=== PATIENT | male | born 1990 | race Caucasian/White ===

== ENCOUNTER 2022-12-11 22:22 | Emergency (ER) | payer SELFPAY ==
[2022-12-11 22:35] VITALS: BP 145/95; PULSE 84; RESP 18; TEMP 36.9; O2SAT 99; BMI 25.0
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
[2022-12-11] MEDS: cephALEXin 250 MG CAPSULE 500 MG PO (22:57)
== END 2022-12-11 23:05 | disposition home or self-care (01) ==
PROVIDERS: Emergency Provider Emergency Medicine
DX: T81.49XA Infection following a procedure, other surgical site, initial encounter (principal)
CPT/HCPCS: 99283

== ENCOUNTER 2023-10-11 12:14 | Emergency (ER) | payer SELFPAY ==
[2023-10-11] VITALS (11 sets, daily range): BP systolic 121–140; BP diastolic 76–86; PULSE 59–75; RESP 18–23; TEMP 36.3–36.6; O2SAT 98–100; BMI 25.2
--- NOTE | 2023-10-11 12:24 | DI.RAD.S_ITS ---
PROCEDURE: XR CHEST 1V INDICATIONS: chest pain TECHNIQUE: One view of the chest was acquired. COMPARISON: None. FINDINGS: Surgical changes and devices: None. Lungs and pleura: Lungs are clear. No pleural effusions or pneumothorax. Mediastinum: Mediastinal contours appear normal. Heart size is normal. Bones and chest wall: No suspicious bony lesions. Overlying soft tissues appear unremarkable. IMPRESSION: No acute cardiopulmonary abnormalities or focal airspace disease. Dictated by: Corey Tilley M.D. on 10/11/2023 at 13:32 Approved by: Corey Tilley M.D. on 10/11/2023 at 13:32
[2023-10-11 13:00] LABS: Add Manual Diff / Slide Review NO; Basophils Absolute Auto 100 /uL (0-100); Basophils Percent Auto 1.2 % (0-2); Eosinophils Absolute Auto 100 /uL (0-450); Eosinophils Percent Auto 0.7 % (2-4); Hematocrit 44.9 % (41-53); Hemoglobin 15.5 g/dL (13.5-17.5); Lymphocytes Absolute Auto 1700 /uL (1100-4500); Lymphocytes Percent Auto 20.9 % (25-40); Mean Corpuscular HGB Conc 34.4 % (30-36); Mean Corpuscular Hemoglobin 34.1 PG (26-34); Monocytes Absolute Auto 900 /uL (0-900); Monocytes Percent Auto 10.6 % (3-14); Neutrophils Absolute Auto 5400 /uL (1500-7000); Neutrophils Percent Auto 66.6 % (50-75); Platelet Count 295 X10^3/uL (150-400); Red Blood Cell Count 4.54 X10^6/uL (4.5-5.9); Red Cell Distribution Width 12.8 % (11.6-14.8); White Blood Cell Count 8.1 X10^3/uL (4.5-11.0)
[2023-10-11 13:05] LABS: Prothrombin Time 11.4 SECONDS (9.4-12.5)
[2023-10-11 13:08] LABS: PTT Partial Thromboplastin Tim 36 SECONDS (25.1-36.5)
[2023-10-11 13:10] LABS: Alanine Aminotransferase 96 IU/L (<50); Albumin Globulin Ratio 1.4 (1.0-2.8); Alkaline Phosphatase 79 U/L (38-126); Aspartate Aminotransferase 85 IU/L (17-59); BUN Creatinine Ratio 12.5 (6-22); Bilirubin Total 1.6 mg/dL (0.2-1.3); Blood Urea Nitrogen 10 mg/dL (9-20); Calcium 9.1 mg/dL (8.4-10.2); Carbon Dioxide 24 mmol/L (22-32); Chloride 100 mmol/L (98-107); Creatine Kinase 162 U/L (55-170); Estimated Glomerular Filt Rate > 60 mL/min (>60); Globulin 3.5 g/dL (1.7-4.1); Glucose 80 mg/dL (70-100); HEMOLYSIS < 15 (0-50); Lipase 78 U/L (23-300); Magnesium 2.2 mg/dL (1.6-2.3); Potassium 3.9 mmol/L (3.4-5.1); Sodium 135 mmol/L (137-145); Total Protein 8.5 g/dL (6.3-8.2)
[2023-10-11 13:20] LABS: Troponin I < 0.012 ng/mL (0.01-0.034)
--- NOTE | 2023-10-11 13:28 | ED_ITS ---
HPI - Chest Pain General Chief Complaint: Chest Pain Stated Complaint: no circulation to extremities/heart palpitations Time Seen by Provider: 10/11/23 13:12 Source: patient Mode of arrival: Ambulatory History of Present Illness HPI narrative: Patient here with . Complains of off and on numbness tingling to the hands and feet. Has had palpitations with nausea and vomiting. Today had left-sided chest pain radiating to the left arm. Patient does smoke. Father side has history of coronary disease. Patient has never had a stress test before. Patient does not have primary care. 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 Very active. However played 2 games Tuesday night without difficulty. The following day he played 8 games without difficulty. However Tuesday night he felt palpitations. He awoke Tuesday morning with nausea and vomiting and tingling to the feet and hands. [place] very tired. Today he awoke feeling the same way however he works as a construction engineering manager. He had left-sided chest discomfort that resolved. It radiated to his left arm. Currently no complaints. Related Data Allergies Allergy/AdvReac Type Severity Reaction Status Date / Time No Known Drug Allergies Allergy Verified 10/11/23 12:19 Review of Systems Review of Systems Narrative: GENERAL: negative chills, fatigue, malaise, fever, positive sweats. HEENT: negative sinus pain, ear pain, sore throat RESPIRATORY: negative dyspnea, cough CARDIOVASCULAR: Positive chest pain, palpitations GASTROINTESTINAL: Positive nausea, vomiting, negative abdominal pain : negative dysuria, frequency, hematuria MUSCULOSKELETAL: negative muscle or bony pain SKIN: negative rash, skin lesions NEUROLOGIC: negative weakness, numbness ROS Unobtainable: All systems reviewed & are unremarkable except as noted in HPI and below Patient History Social History Smoking Status: Current every day smoker Smoking Status: Current every day smoker alcohol intake frequency: a few times a week Substance Use Type: marijuana Exam Narrative Exam Narrative: GENERAL: in no distress, not toxic not dyspneic HEAD: Normocephalic. EYES: Pupils equal round ENT: Mucous membranes moist. NECK: Trachea midline. CARDIOVASCULAR: Regular rate and rhythm RESPIRATORY: Clear to auscultation. Breath sounds equal bilaterally. No wheezes, rales, or rhonchi. GASTROINTESTINAL: Abdomen soft, non-tender EXTREMITIES: No gross deformities. Bilateral hands and feet are warm soft and pink with strong radial pulses and pedal pulses with brisk cap refills. BACK: No flank tenderness. NEURO: AOx4. Clear speech SKIN: Warm and dry PSYCH: Not anxious, is cooperative Initial Vital Signs Initial Vital Signs: Vital Signs Temperature 97.4 F L 10/11/23 12:19 Pulse Rate 75 10/11/23 12:19 Respiratory Rate 18 10/11/23 12:19 Blood Pressure 140/86 10/11/23 12:19 Pulse Oximetry 100 10/11/23 12:19 Oxygen Delivery Method Room Air 10/11/23 12:19 Scores HEART Score Heart Score history: Slightly Suspicious Heart Score EKG: Non-Specific repolarization disturbance Heart Score Age: < 45 years old Heart Score risk factors: 1-2 risk factors Heart Score troponin: < or = to normal limit Heart Score Total: 2 Course Orders Ordered: Discontinued Medications Aspirin (Aspirin 81 Mg Chew Tab) 324 mg PO NOW ONE Stop: 10/11/23 12:25 Last Admin: 10/11/23 15:23 Dose: Not Given Documented By: WALESKA Sodium Chloride (Normal Saline 0.9%) 500 mls @ 1,000 mls/hr IV BOLUS ONE Stop: 10/11/23 14:01 Last Infusion: 10/11/23 14:31 Dose: Infused Documented By: JUAN JOSE Admin: 10/11/23 13:57 Dose: 1,000 mls/hr Documented By: JUAN JOSE Vital Signs Vital signs: Vital Signs - 8 hr 10/11/23 12:19 Temperature 97.4 F L Pulse Rate 75 Respiratory Rate 18 Blood Pressure 140/86 Pulse Oximetry 100 Oxygen Delivery Method Room Air MDM - Chest Pain Lab Data 10/11/23 12:44 10/11/23 12:44 Labs: Lab Results 10/11/23 10/11/23 10/11/23 Range/Units 12:44 14:00 14:59 WBC 8.1 (4.5-11.0) X10^3/uL RBC 4.54 (4.5-5.9) X10^6/uL Hgb 15.5 (13.5-17.5) g/dL Hct 44.9 (41-53) % MCV 99.0 (80-100) fL MCH 34.1 H (26-34) PG MCHC 34.4 (30-36) % RDW 12.8 (11.6-14.8) % Plt Count 295 (150-400) X10^3/uL Neut % (Auto) 66.6 (50-75) % Lymph % (Auto) 20.9 L (25-40) % [place] % (Auto) 10.6 (3-14) % Eos % (Auto) 0.7 L (2-4) % Baso % (Auto) 1.2 (0-2) % Neut # (Auto) 5400 (7020-8628) /uL Lymph # (Auto) 1700 (2344-0541) /uL [place] # (Auto) 900 (0-900) /uL Eos # (Auto) 100 (0-450) /uL Baso # (Auto) 100 (0-100) /uL PT 11.4 (9.4-12.5) SECONDS INR 1.0 (0.9-1.3) APTT 36 (25.1-36.5) SECONDS Sodium 135 L (137-145) mmol/L Potassium 3.9 (3.4-5.1) mmol/L Chloride 100 (98-107) mmol/L Carbon Dioxide 24 (22-32) mmol/L BUN 10 (9-20) mg/dL Creatinine 0.80 (0.66-1.25) mg/dL Estimated GFR > 60 (>60) mL/min BUN/Creatinine Ratio 12.5 (6-22) Glucose 80 (70-100) mg/dL Calcium 9.1 (8.4-10.2) mg/dL Magnesium 2.2 (1.6-2.3) mg/dL Total Bilirubin 1.6 H (0.2-1.3) mg/dL AST 85 H (17-59) IU/L ALT 96 H (<50) IU/L Alkaline Phosphatase 79 (38-126) U/L Total Creatine Kinase 162 (55-170) U/L Troponin I < 0.012 < 0.012 (0.01-0.034) ng/mL Total Protein 8.5 H (6.3-8.2) g/dL Albumin 5.0 (3.5-5.0) g/dL Globulin 3.5 (1.7-4.1) g/dL Albumin/Globulin Ratio 1.4 (1.0-2.8) Lipase 78 (23-300) U/L U Opiates 300ng/mL cut Negative (Negative) Ur Oxycodone Screen Negative (Negative) Urine Methadone Screen Negative (Negative) Ur Barbiturates Screen Negative (Negative) U Tricyclic Antidepress Negative (Negative) Ur Phencyclidine Scrn Negative (Negative) Ur Amphetamines Screen Negative (Negative) U Methamphetamines Scrn Negative (Negative) Ur MDMA Scrn (Ecstasy) Negative (Negative) U Benzodiazepines Scrn Negative (Negative) Urine Cocaine Screen Negative (Negative) U Marijuana (THC) Screen Positive H (Negative) Urine pH Normal (Normal) Urine Specific [place] Normal (Normal) Ethyl Alcohol < 10 ( - 10) mg/dL Ur Creatinine Normal (Normal) Imaging Data Chest x-ray: Radiologist's Impression: [address] [id number] XRay Report Signed Patient: Brad Bustamante MR#: [id number] : 1990 Acct:[id number] Age/Sex: 33 / M Date of Service: 10/11/23 Loc: ED Accession Number: [id number] Procedure: XR chest 1V Ordering Provider: Cain Cool MD PROCEDURE: XR CHEST 1V INDICATIONS: chest pain TECHNIQUE: One view of the chest was acquired. COMPARISON: None. FINDINGS: Surgical changes and devices: None. Lungs and pleura: Lungs are clear. No pleural effusions or pneumothorax. Mediastinum: Mediastinal contours appear normal. Heart size is normal. Bones and chest wall: No suspicious bony lesions. Overlying soft tissues appear unremarkable. IMPRESSION: No acute cardiopulmonary abnormalities or focal airspace disease. Dictated by: Corey Tilley M.D. on 10/11/2023 at 13:32 Approved by: Corey Tilley M.D. on 10/11/2023 at 13:32 CT angio chest abdomen and pelvis: Radiologist's Impression: [address] [address] [address] Scan Report Signed Patient: Brad Bustamante MR#: [id number] : 1990 Acct:[id number] Age/Sex: 33 / M Date of Service: 10/11/23 Loc: ED Accession Number: [id number] Procedure: CT angio chest abdomen pelvis Ordering Provider: Cain Cool MD POCEDURE: CT ANGIO CHEST ABDOMEN PELVIS INDICATIONS: Chest pain/numbness tingling TECHNIQUE: Precontrast 5 mm thick sections acquired from the lung apices to the iliac crests. After the administration of intravenous contrast, 2.5 mm thick sections again acquired from the lung apices to the iliac crests. Maximum intensity projection (MIP) oblique sagittal and coronal reformats were then acquired. For radiation dose reduction, the following was used: automated exposure control. COMPARISON: None. FINDINGS: Image quality: Diagnostic. AORTA: No aortic aneurysm. No acute aortic syndrome. CHEST: Lower Neck: No enlarged lymph nodes. Thyroid: No thyroid nodules which require sonographic follow up, per consensus guidelines. Axillae: No enlarged lymph nodes. Chest Wall: Unremarkable. Lungs and Pleura: No pneumothorax or pleural effusions. No consolidation or suspicious nodules. Heart: Heart size is normal. No pericardial effusion. Thoracic Vessels: Pulmonary arteries demonstrate normal size. Mediastinum and Bre: No enlarged lymph nodes. Esophagus: No wall thickening. No hiatal hernia. ABDOMEN: Liver: No solid mass. There is diffuse hypoattenuation of the liver parenchyma relative to the spleen compatible with hepatic steatosis. Gallbladder: No radiopaque gallstones or wall thickening. Biliary ducts: No biliary dilation. Pancreas: No ductal dilation. Spleen: Size is within normal limits. Adrenal Glands: No adrenal nodules. Kidneys and Ureters: No hydronephrosis. No solid mass. No complex renal cystic lesion which requires follow up. Stomach and Bowel: There is mild circumferential wall thickening of the ascending and transverse colon which may be related to incomplete distension. No significant pericolonic stranding or inflammation. No evidence for small bowel obstruction. Peritoneum: No abnormal intraperitoneal fluid. No free air. Ventral Wall: No hernia. Abdominal Nodes: No retroperitoneal or mesenteric adenopathy by size criteria. Vessels: Inferior vena cava is normal in size. PELVIS: Pelvic Organs: Unremarkable. Bladder: Unremarkable. Pelvic Nodes: No enlarged lymph nodes. Miscellaneous: No inguinal hernias are seen. Bones: Unremarkable. Visualized osseous structures appear intact without acute fracture or focal destructive lesion. No acute compression fractures of the imaged spine. IMPRESSION: 1. CT angiogram of the chest, abdomen, and pelvis without evidence for aneurysmal dilatation or dissection. 2. Mild circumferential wall thickening of the ascending and transverse colon which may be related to incomplete distension. However, mild/early colitis either infectious or inflammatory may have a similar appearance. 3. Hepatic steatosis. Dictated by: Corey Tilley M.D. on 10/11/2023 at 14:03 Approved by: Corey Tilley M.D. on 10/11/2023 at 14:10 [facility] Narrative Medical decision making narrative: Patient here with family. Sent in by primary care for accidental overdose of NovoLog. Patient was supposed to take at 10:00 a.m. today 36 units of Lantus and 14 units of NovoLog. However she took 36 units of NovoLog. She did not not not take any Lantus. She has no other complaints. No nausea no sweating no syncope no seizure no weakness no dizziness. After history and exam aspirin troponin EKG chest x-ray CT angiogram chest abdomen pelvis CBC CMP normal saline MDM Medical records reviewed: No recent visit for this complaint Differential considered: Includes but not limited to STEMI non-STEMI atypical chest pain angina pulmonary embolism aortic dissection arrhythmia Lab Test results independently reviewed as above. Pertinent findings: WBC 8.1 hemoglobin 15.5 sodium 135 potassium 3.9 AST 85 ALT 96 troponin less than 0.012 Independently reviewed EKG normal sinus rhythm rate 63 incomplete right bundle- branch block no ST elevation or depression Imaging studies independently reviewed: Chest x-ray no acute finding CT angiogram chest abdomen pelvis no acute finding Consultations: 2:30 [address] Cardiology Dr. Lomas, recommends observation overnight echocardiogram and treadmill stress test. 2:50 p.m.. Spoke with hospitalist, dr martin, does not approve for admission due to low heart score. Treatments: Aspirin normal saline Re-evaluations: 3:00 p.m.. Spoke with patient and my discussion with Cardiology, they have refused admission or transfer for continued care for chest pain. Reviewed with him risks and benefits, risks of leaving against medical advice as well as benefits for being admitted/transferred for balance of workup. Discussion: Patient has decided to leave against medical advice. I implored with him for admission and stress test and echocardiogram. at bedside. He states he does not have insurance and does not want to risk the financial burden of being admitted and continued testing. Risks of leaving against medical advice includes but not limited heart attack stroke loss of limb or organ tissue permanent injury. He is awake alert oriented x4. No altered mental status. Even though hospitalist would not admit here, I would be trying to transfer patient Diagnosis: Atypical chest pain/against medical advice Discharge Plan Departure Patient Disposition: Left Against Medical Advice Clinical Impression: Atypical chest pain, Left against medical advice Instructions: Refusal of Consent to Treatment (Against Medical Advice) Activity Restrictions/Additional Instructions: Please return immediately if you change your mind for admission Referrals: Miscellaneous,Doctor, MD [Primary Care Provider] - Stand Alone Forms: Patient Portal/API, Against Medical Advice, Work Release Note
--- NOTE | 2023-10-11 13:41 | DI.CT.S_ITS ---
POCEDURE: CT ANGIO CHEST ABDOMEN PELVIS INDICATIONS: Chest pain/numbness tingling TECHNIQUE: Precontrast 5 mm thick sections acquired from the lung apices to the iliac crests. After the administration of intravenous contrast, 2.5 mm thick sections again acquired from the lung apices to the iliac crests. Maximum intensity projection (MIP) oblique sagittal and coronal reformats were then acquired. For radiation dose reduction, the following was used: automated exposure control. COMPARISON: None. FINDINGS: Image quality: Diagnostic. AORTA: No aortic aneurysm. No acute aortic syndrome. CHEST: Lower Neck: No enlarged lymph nodes. Thyroid: No thyroid nodules which require sonographic follow up, per consensus guidelines. Axillae: No enlarged lymph nodes. Chest Wall: Unremarkable. Lungs and Pleura: No pneumothorax or pleural effusions. No consolidation or suspicious nodules. Heart: Heart size is normal. No pericardial effusion. Thoracic Vessels: Pulmonary arteries demonstrate normal size. Mediastinum and Bre: No enlarged lymph nodes. Esophagus: No wall thickening. No hiatal hernia. ABDOMEN: Liver: No solid mass. There is diffuse hypoattenuation of the liver parenchyma relative to the spleen compatible with hepatic steatosis. Gallbladder: No radiopaque gallstones or wall thickening. Biliary ducts: No biliary dilation. Pancreas: No ductal dilation. Spleen: Size is within normal limits. Adrenal Glands: No adrenal nodules. Kidneys and Ureters: No hydronephrosis. No solid mass. No complex renal cystic lesion which requires follow up. Stomach and Bowel: There is mild circumferential wall thickening of the ascending and transverse colon which may be related to incomplete distension. No significant pericolonic stranding or inflammation. No evidence for small bowel obstruction. Peritoneum: No abnormal intraperitoneal fluid. No free air. Ventral Wall: No hernia. Abdominal Nodes: No retroperitoneal or mesenteric adenopathy by size criteria. Vessels: Inferior vena cava is normal in size. PELVIS: Pelvic Organs: Unremarkable. Bladder: Unremarkable. Pelvic Nodes: No enlarged lymph nodes. Miscellaneous: No inguinal hernias are seen. Bones: Unremarkable. Visualized osseous structures appear intact without acute fracture or focal destructive lesion. No acute compression fractures of the imaged spine. IMPRESSION: 1. CT angiogram of the chest, abdomen, and pelvis without evidence for aneurysmal dilatation or dissection. 2. Mild circumferential wall thickening of the ascending and transverse colon which may be related to incomplete distension. However, mild/early colitis either infectious or inflammatory may have a similar appearance. 3. Hepatic steatosis. Dictated by: Corey Tilley M.D. on 10/11/2023 at 14:03 Approved by: Corey Tilley M.D. on 10/11/2023 at 14:10
[2023-10-11 13:44] LABS: Ethanol (ETOH) < 10 mg/dL
[2023-10-11] MEDS: SODIUM CHLORIDE 0.9% 500 ML 1000 ML IV (13:57)
[2023-10-11 14:13] LABS: Ur Creatinine Normal (Normal); Ur Specific Gravity Normal (Normal); Urine pH Normal (Normal)
[2023-10-11 14:14] LABS: UR Morphine/Opiate cutoff 300 Negative (Negative); Urine Amphetamines Negative (Negative); Urine Barbiturates Negative (Negative); Urine Benzodiazepines Negative (Negative); Urine Cocaine Negative (Negative); Urine MDMA Negative (Negative); Urine Methadone Negative (Negative); Urine Methamphetamines Negative (Negative); Urine Oxycodone Negative (Negative); Urine Phencyclidine Negative (Negative); Urine Tetrahydrocannabinol Positive (Negative); Urine Tricyclic Antidepressant Negative (Negative)
[2023-10-11 15:34] LABS: Troponin I < 0.012 ng/mL (0.01-0.034)
== END 2023-10-11 15:24 | disposition left against medical advice (07) ==
PROVIDERS: Emergency Provider Emergency Medicine
DX: R07.89 Other chest pain (principal); R11.2 Nausea with vomiting, unspecified; R20.0 Anesthesia of skin
CPT/HCPCS: 36415; 71045; 71275; 74174; 80053; 80305; 80320; 82550; 83690; 83735; 84484; 85025; 85610; 85730; 93005; 99284; Q9967

== ENCOUNTER 2023-12-01 19:03 | Emergency (ER) | payer SELFPAY ==
[2023-12-01 19:14] VITALS: BP 140/87; PULSE 65; RESP 16; TEMP 36.6; O2SAT 98; BMI 25.7
--- NOTE | 2023-12-01 19:19 | DI.CT.S_ITS ---
PROCEDURE: CT HEAD/BRAIN WO CON INDICATIONS: softball to the face, dizziness and pain TECHNIQUE: Noncontrast 4.5 mm thick angled axial sections acquired from the foramen magnum to the vertex, with coronal and sagittal reformats. For radiation dose reduction, the following was used: automated exposure control, adjustment of mA and/or kV according to patient size. COMPARISON: None. FINDINGS: Image quality: Diagnostic. CSF spaces: Basal cisterns are patent. No extra-axial fluid collections. Ventricles are normal in size and shape. Brain: No midline shift. No intracranial masses or hemorrhage. [place]-white matter interface is normal. Skull and face: Calvarium and visualized facial bones are intact, without suspicious lesions. Sinuses: Visualized sinuses and mastoids are clear. IMPRESSION: No acute intracranial pathology. Dictated by: Neal Miller M.D. on 12/01/2023 at 20:06 Approved by: Neal Miller M.D. on 12/01/2023 at 20:07
--- NOTE | 2023-12-01 19:19 | DI.CT.S_ITS ---
PROCEDURE: CT FACIAL BONES WO CON INDICATIONS: softball to the face, dizziness and pain TECHNIQUE: Noncontrast 2.5 mm thick axial images acquired from the mandible through the frontal sinuses, with coronal and sagittal reformatting. For radiation dose reduction, the following was used: automated exposure control, adjustment of mA and/or kV according to patient size. COMPARISON: None. FINDINGS: Image quality: Excellent. Bones and teeth: Acute slightly comminuted and minimally displaced fracture involving left nasal bone is seen with up to 2 mm diastasis at fracture site. Mild nasal septal deviation to the right is seen. Orbital vences are intact. Sinus vences show no fracture or deformity. Visualized portions of the mandible demonstrate no fractures or subluxation. Zygomatic arches are intact. Pterygoid plates are intact. Visualized portions of the skull base and auditory canals are intact. Sinuses: Small amount of fluid within right maxillary sinus is seen. Mild mucosal thickening in bilateral ethmoid air cells are noted. Mastoid air cells are aerated. Soft tissues: Left facial soft tissue swelling anterior to the nasal bone and maxilla is seen. No enlarged lymph nodes. No soft tissue lacerations or debris. Vascular: Visualized vascular structures appear normal in the absence of contrast. Bony vascular foramina and canals are intact. IMPRESSION: 1. Acute comminuted, and slightly displaced left nasal bone fracture with mild nasal septal deviation to the right. Overlying soft tissue swelling and extending to anterior aspect of left maxilla is seen. 2. No other fracture or dislocation. Mucosal thickening in right maxillary sinus and bilateral ethmoid sinuses. 3. Bilateral orbital vences and orbital globes are intact. Dictated by: Neal Miller M.D. on 12/01/2023 at 20:07 Approved by: Neal Miller M.D. on 12/01/2023 at 20:16
--- NOTE | 2023-12-02 04:44 | ED.GENADULT ---
HPI - General Adult General Chief complaint: Nasal Problem Stated complaint: hit in face with softball Source: patient Mode of arrival: Ambulatory History of Present Illness HPI narrative: Patient left without seeing provider. CT face and brain imaging was done through triage, comminuted nasal bone fractures noted, no other facial fractures, no intracranial brain lesions. ED charge nurse to contact patient, to let him know about imaging results, printed copies of CT reports, handed to ED charge nurse, who will contact patient with advised to either be rechecked here in the emergency department, or to follow up with Otolaryngology in the next 2 days when swelling is decreased to see if there is any need for nasal bone straightening. Related Data Allergies Allergy/AdvReac Type Severity Reaction Status Date / Time No Known Drug Allergies Allergy Verified 12/01/23 19:17 Patient History Social History Smoking Status: Current every day smoker Smoking Status: Current every day smoker alcohol intake frequency: a few times a week Substance Use Type: marijuana Exam Initial Vital Signs Initial Vital Signs: Vital Signs Temperature 98 F 12/01/23 19:14 Pulse Rate 65 12/01/23 19:14 Respiratory Rate 16 12/01/23 19:14 Blood Pressure 140/87 12/01/23 19:14 Pulse Oximetry 98 12/01/23 19:14 Oxygen Delivery Method Room Air 12/01/23 19:14 Discharge Plan Departure Patient Disposition: Left Without Being Seen Clinical Impression: Patient left without being seen
--- NOTE | 2023-12-02 07:10 | PC.NURSE ---
Per Provider's order, called patient to inform on nasal bone fractures. Informed patient to come back or follow up with ENT. Pt states understanding.
== END 2023-12-01 23:35 | disposition left against medical advice (07) ==
PROVIDERS: Emergency Provider Emergency Medicine
DX: R42 Dizziness and giddiness (principal); R51.9 Headache, unspecified
CPT/HCPCS: 70450; 70486; 99281